=== PATIENT | female | born 1960 | race Caucasian/White ===

== ENCOUNTER 2017-12-22 08:47 | Emergency (ER) | payer MEDICAID ==
[~2017-12-22] VITALS: Ht 167.6 cm; Wt 86.0 kg
[2017-12-22 09:03] VITALS: BP 115/80
[2017-12-22] MEDS ORDERED: DIPH,PERTUSS(ACELL),TET VAC/PF 0.5 ML IM-VACC ONE ×2 (10:13→10:30)
[2017-12-22] MEDS ORDERED: LIDOCAINE-MPF 1%, 5ML ONE (10:13)
[2017-12-22] MEDS ORDERED: LIDOCAINE-MPF 1%, 5ML INFIL ONE (10:30)
== END 2017-12-22 11:11 | disposition home or self-care (01) ==
LOC: ED 10:54
DX: L03.011 Cellulitis of right finger (principal)
CPT/HCPCS: 10060; 90471; 90715; 99283